=== PATIENT | female | born 1995 ===

== ENCOUNTER 2016-08-11 12:33 | Emergency (ER) | payer MEDICAID ==
[2016-08-11 12:50] VITALS: RESP 18; O2SAT 97
[2016-08-11] MEDS ORDERED: NS 1,000 ML IV ONE (12:55)
[2016-08-11] MEDS ORDERED: ONDANSETRON 4 MG/2 ML VIAL IVP ONE (12:55)
[2016-08-11] MEDS ORDERED: fentaNYL 100 MCG/2 ML INJ IVP ONE (12:55)
[2016-08-11] MEDS ORDERED: DICYCLOMINE 20 MG TAB PO ONE (12:57)
--- NOTE | 2016-08-11 13:01 | EDPHY ---
H & P Stated Complaint: c/o mid abd pain x 3 days Time Seen by Provider: 08/11/16 12:45 HPI/ROS: CHIEF COMPLAINT: Abdominal pain HISTORY OF PRESENT ILLNESS: 20-year-old female with a history of IBS which is usually well controlled with Bentyl presents to the emergency department reporting right mid abdominal pain which started yesterday. Pain as dull, moderate in severity. Associated with some nausea but no vomiting. Her IBS has not previously resulted in right-sided pain. Patient also has a history of constipation. She tells me she called her primary care physician who reported that she should come to the emergency department to obtain a Bentyl prescription. Patient denies any fevers or chills. She denies any urinary complaints, or diarrhea. She has no lightheadedness or headache. No vaginal bleeding. LMP was 2 weeks ago. Denies abdominal trauma. REVIEW OF SYSTEMS: Aside from elements discussed in the HPI, a comprehensive 10-point review of systems was reviewed and is negative. PAST MEDICAL HISTORY: IBS. SOCIAL HISTORY: . Nonsmoker. VITAL SIGNS Reviewed by me. GENERAL: Well-developed, well-nourished, resting comfortably in no respiratory distress. HEENT: Atraumatic. Eyes: No icterus, no injection. Mouth: moist mucous membranes. No erythema or lesions. Neck: supple with no adenopathy. LUNGS: Clear to auscultation bilaterally, no wheezes, rhonchi or rales. CARDIAC: Regular rate and rhythm, no rubs, murmurs or gallops. ABDOMEN: Soft, moderate right upper quadrant tenderness. Mild right mid quadrant tenderness. No guarding or rebound. No epigastric pain. No right lower quadrant pain. No flank pain. Nondistended. Normal bowel sounds. BACK: Mild right CVA tenderness. EXTREMITIES: No trauma. No edema. Range of motion is normal throughout. NEURO: Alert and oriented, grossly nonfocal. SKIN: Warm and dry, no rash. PSYCHIATRIC: Normal mentation, no agitation. - Personal History LMP (Females 10-55): 22-28 Days Ago Current Tetanus Diphtheria and Acellular Pertussis (TDAP): Yes Tetanus Vaccine Date: within 10 yrs - Medical/Surgical History Hx Asthma: No Hx Chronic Respiratory Disease: No Hx Diabetes: No Hx Cardiac Disease: No Hx Renal Disease: No Hx Cirrhosis: No Hx Alcoholism: No Hx HIV/AIDS: No Hx Splenectomy or Spleen Trauma: No Other PMH: IBS - Social History Smoking Status: Never smoked Constitutional: Initial Vital Signs Temperature (C) 36.1 C 08/11/16 12:47 Heart Rate 78 08/11/16 12:47 Respiratory Rate 18 08/11/16 12:47 Blood Pressure 126/90 H 08/11/16 12:47 O2 Sat (%) 97 08/11/16 12:47 O2 Delivery Mode Room Air Allergies/Adverse Reactions: metformin Allergy (Verified 08/11/16 12:47) Home Medications: Medication Instructions Recorded NK [No Known Home Meds] 08/11/16 Medical Decision Making - Diagnostics Imaging Results: Xray: Abdominal flat plate was obtained. I viewed the images myself on the PACS system. My interpretation of the images is: Constipation. The radiology interpretation is: Pending. I discussed the results with the patient. Imaging: I viewed and interpreted images myself ED Course/Re-evaluation: IV was established in the patient received IV fluids, fentanyl, and Bentyl p.o.. Laboratory evaluation is reassuring with a normal white count, normal urinalysis , normal liver function tests. Patient is not . Abdominal x-ray demonstrates significant constipation. Patient was re-evaluated. She is feeling better with the Bentyl as well as the pain medication. She was advised regarding her constipation and I suggested that she obtain a bottle magnesium citrate and use as directed. She will follow up with her primary care physician. Differential Diagnosis: After obtaining the patient's history and performing an examination, differential diagnosis considered included but was not limited to appendicitis, cholecystitis, gastritis, pancreatitis, kidney stones, urinary tract infections , irritable bowel syndrome, constipation, and other causes. - Data Points Laboratory Results: Laboratory Results 08/11/16 13:05 08/11/16 13:05 08/11/16 08/11/16 08/11/16 13:50 13:05 13:05 WBC RBC Hgb Hct MCV MCH MCHC RDW Plt Count MPV Neut % (Auto) Lymph % (Auto) [place] % (Auto) Eos % (Auto) Baso % (Auto) Nucleat RBC Rel Count Absolute Neuts (auto) Absolute Lymphs (auto) Absolute Monos (auto) Absolute Eos (auto) Absolute Basos (auto) Absolute Nucleated RBC Immature Gran % Immature Gran # Sodium 140 mEq/L mEq/L (134-144) Potassium 4.4 mEq/L mEq/L (3.5-5.2) Chloride 103 mEq/L mEq/L (97-110) Carbon Dioxide 23 mEq/l mEq/l (22-31) Anion Gap 14 mEq/L mEq/L (8-16) BUN 12 mg/dL mg/dL (7-23) Creatinine 0.7 mg/dL mg/dL (0.6-1.0) Estimated GFR > 60 Glucose 85 mg/dL mg/dL (70-100) Calcium 9.3 mg/dL mg/dL (8.5-10.4) Total Bilirubin 0.6 mg/dL mg/dL (0.1-1.4) Conjugated Bilirubin 0.3 mg/dL mg/dL (0.0-0.5) Unconjugated Bilirubin 0.3 mg/dL mg/dL (0.0-1.1) AST 18 IU/L IU/L (14-46) ALT 24 IU/L IU/L (9-52) Alkaline Phosphatase 76 IU/L IU/L (38-126) Total Protein 7.2 g/dL g/dL (6.3-8.2) Albumin 3.8 g/dL g/dL (3.5-5.0) Lipase 125.0 IU/L IU/L (23-300) Beta HCG, Qual NEGATIVE Urine Color YELLOW Urine Appearance CLEAR Urine pH 6.0 (5.0-7.5) Ur Specific [place] 1.010 (1.002-1.030) Urine Protein NEGATIVE (NEGATIVE) Urine Ketones NEGATIVE (NEGATIVE) Urine Blood NEGATIVE (NEGATIVE) Urine Nitrate NEGATIVE (NEGATIVE) Urine Bilirubin NEGATIVE (NEGATIVE) Urine Urobilinogen 0.2 EU EU (0.2-1.0) Ur Leukocyte Esterase NEGATIVE (NEGATIVE) Urine Glucose NEGATIVE (NEGATIVE) 08/11/16 13:05 WBC 5.44 10^3/uL 10^3/uL (3.80-9.50) RBC 4.66 10^6/uL 10^6/uL (4.18-5.33) Hgb 13.7 g/dL g/dL (12.6-16.3) Hct 41.2 % % (38.0-47.0) MCV 88.4 fL fL (81.5-99.8) MCH 29.4 pg pg (27.9-34.1) MCHC 33.3 g/dL g/dL (32.4-36.7) RDW 12.9 % % (11.5-15.2) Plt Count 206 10^3/uL 10^3/uL (150-400) MPV 10.7 fL fL (8.7-11.7) Neut % (Auto) 59.3 % % (39.3-74.2) Lymph % (Auto) 32.7 % % (15.0-45.0) [place] % (Auto) 5.9 % % (4.5-13.0) Eos % (Auto) 1.5 % % (0.6-7.6) Baso % (Auto) 0.2 % L % (0.3-1.7) Nucleat RBC Rel Count 0.0 % % (0.0-0.2) Absolute Neuts (auto) 3.23 10^3/uL 10^3/uL (1.70-6.50) Absolute Lymphs (auto) 1.78 10^3/uL 10^3/uL (1.00-3.00) Absolute Monos (auto) 0.32 10^3/uL 10^3/uL (0.30-0.80) Absolute Eos (auto) 0.08 10^3/uL 10^3/uL (0.03-0.40) Absolute Basos (auto) 0.01 10^3/uL L 10^3/uL (0.02-0.10) Absolute Nucleated RBC 0.00 10^3/uL 10^3/uL (0-0.01) Immature Gran % 0.4 % % (0.0-1.1) Immature Gran # 0.02 10^3/uL 10^3/uL (0.00-0.10) Sodium Potassium Chloride Carbon Dioxide Anion Gap BUN Creatinine Estimated GFR Glucose Calcium Total Bilirubin Conjugated Bilirubin Unconjugated Bilirubin AST ALT Alkaline Phosphatase Total Protein Albumin Lipase Beta HCG, Qual Urine Color Urine Appearance Urine pH Ur Specific [place] Urine Protein Urine Ketones Urine Blood Urine Nitrate Urine Bilirubin Urine Urobilinogen Ur Leukocyte Esterase Urine Glucose Medications Given: Discontinued Medications Dicyclomine HCl (Bentyl) 20 mg PO EDNOW ONE Stop: 08/11/16 12:58 Last Admin: 08/11/16 13:31 Dose: 20 mg Fentanyl (Sublimaze) 75 mcg IVP EDNOW ONE Stop: 08/11/16 12:56 Last Admin: 08/11/16 13:31 Dose: 75 mcg Sodium Chloride (Ns) 1,000 mls @ 0 mls/hr IV ONCE ONE PRN Reason: Wide Open Stop: 08/11/16 12:56 Last Admin: 08/11/16 13:31 Dose: 1,000 mls Ondansetron HCl (Zofran) 4 mg IVP EDNOW ONE Stop: 08/11/16 12:56 Last Admin: 08/11/16 13:32 Dose: 4 mg Departure - Departure Disposition: Home, Routine, Self-Care Clinical Impression: Abdominal pain Qualifiers: Abdominal location: right upper quadrant Qualified Code(s): R10.11 - Right upper quadrant pain Constipation Qualifiers: Constipation type: unspecified constipation type Qualified Code(s): K59.00 - Constipation, unspecified Condition: Good Instructions: Irritable Bowel Syndrome (ED), Constipation (ED), High Fiber Diet (ED) Additional Instructions: I recommend you obtain a bottle of magnesium citrate. This is available over- the-counter. Please drink half of the bottle. Then wait 4 hours. If you're not have significant stool output, you may drink the other half of the bottle. Please follow up with her primary care physician this week for re-evaluation. Please be seen sooner if you develop fevers, vomiting, worsening pain despite the above treatment, chest pain, shortness of breath, urinary complaints, or other concerns. Referrals: Patient,NotPresent [Primary Care Provider] - As per Instructions
[2016-08-11 13:09] LABS: % IMMATURE GRANULYOCYTES 0.4 % (0.0-1.1); ABSOLUTE IMMATURE GRANULOCYTES 0.02 10^3/uL (0.00-0.10); ADD DIFF? NO; ADD MORPH? NO; ADD SCAN? NO; ATYPICAL LYMPHOCYTE FLAG 30 (0-99); FRAGMENT RBC FLAG 0 (0-99); HEMATOCRIT 41.2 % (38.0-47.0); HEMOGLOBIN 13.7 g/dL (12.6-16.3); LEFT SHIFT FLG 0 (0-99); LIPEMIA HEMOLYSIS FLAG 80 (0-99); MEAN CELL HEMOGLOBIN 29.4 pg (27.9-34.1); MEAN CELL HEMOGLOBIN CONCENTR. 33.3 g/dL (32.4-36.7); MEAN CELL VOLUME 88.4 fL (81.5-99.8); MEAN PLATELET VOLUME 10.7 fL (8.7-11.7); PLATELET CLUMPS FLAG 0 (0-99); PLATELET COUNT 206 10^3/uL (150-400); RED BLOOD CELL COUNT 4.66 10^6/uL (4.18-5.33); RED CELL DISTRIBUTION WIDTH 12.9 % (11.5-15.2)
[2016-08-11] MEDS ORDERED: DICYCLOMINE 10 MG CAP ONE (13:20)
[2016-08-11 13:27] LABS: ALANINE AMINOTRANSFERASE 24 IU/L (9-52); ALBUMIN 3.8 g/dL (3.5-5.0); ALKALINE PHOSPHATASE 76 IU/L (38-126); ANION GAP 14 mEq/L (8-16); ASPARTATE AMINOTRANSFERASE 18 IU/L (14-46); BILIRUBIN,TOTAL 0.6 mg/dL (0.1-1.4); BILIRUBIN-CONJUGATED 0.3 mg/dL (0.0-0.5); BILIRUBIN-UNCONJUGATED 0.3 mg/dL (0.0-1.1); CALCIUM 9.3 mg/dL (8.5-10.4); CARBON DIOXIDE 23 mEq/l (22-31); CHLORIDE 103 mEq/L (97-110); CREATININE 0.7 mg/dL (0.6-1.0); GLOMERULAR FILTRATION RATE > 60; GLUCOSE 85 mg/dL (70-100); POTASSIUM 4.4 mEq/L (3.5-5.2); SODIUM 140 mEq/L (134-144); TOTAL PROTEIN 7.2 g/dL (6.3-8.2)
[2016-08-11 13:57] LABS: COLOR YELLOW; LEUKOCYTE ESTERASE,URINE NEGATIVE (NEGATIVE); NITRITE,URINE NEGATIVE (NEGATIVE)
[2016-08-11 14:51] VITALS: BP 118/74; PULSE 18; TEMP 98
== END 2016-08-11 14:48 | disposition home or self-care (01) ==
LOC: CED 12:33
DX: K59.00 Constipation, unspecified (principal)
CPT/HCPCS: 74000-PO; 80048-PO; 80076-PO; 81003-PO; 83690-PO; 84703-PO; 85025-PO; 96374; J2405; J3010

== ENCOUNTER 2017-04-24 12:58 | Emergency (ER) | payer MEDICAID ==
[2017-04-24 13:13] VITALS: RESP 18; TEMP 98.2
[2017-04-24] MEDS ORDERED: NS 1,000 ML IV ONE ×3 (13:22→15:29)
[2017-04-24] MEDS ORDERED: ONDANSETRON 4 MG/2 ML VIAL IVP ONE ×2 (13:22→15:29)
[2017-04-24] MEDS ORDERED: HYDROmorphONE/DILAUDID 1 MG/ML INJ IVP ONE (13:23)
--- NOTE | 2017-04-24 13:28 | EDPHY ---
H & P Time Seen by Provider: 04/24/17 13:15 HPI/ROS: CHIEF COMPLAINT: Severe abdominal pain HISTORY OF PRESENT ILLNESS: This is a 21-year-old female G1, P0, who presents with 1.5 hr of severe lower abdominal pain. Patient is 9 weeks by dates , was seen by an ux design manager yesterday and prescribed the mifepristone/misoprostol oral medical pill. She took 1 pill yesterday and 4 today. Shortly after taking the pills, she developed severe nausea and lower abdominal pain. She has not had any vaginal bleeding. She has not had any spotting. She reports they did an ultrasound yesterday confirming an IUP. No history of ectopic pregnancies. No history of PID. No history of IUD use. Patient was otherwise well. No fever, chills, chest pain, shortness of breath, palpitations, vomiting, diarrhea, urinary complaints, headache, lightheadedness. REVIEW OF SYSTEMS: Aside from elements discussed in the HPI, a comprehensive 10-point review of systems was reviewed and is negative. PAST MEDICAL HISTORY: Inflammatory bowel disease SOCIAL HISTORY: Nonsmoker. Medical school student. VITAL SIGNS Reviewed by me. GENERAL: Well-developed, well-nourished, reporting severe abdominal pain and nausea. HEENT: Atraumatic. Eyes: No icterus, no injection. Mouth: moist mucous membranes. No erythema or lesions. Neck: supple with no adenopathy. LUNGS: Clear to auscultation bilaterally, no wheezes, rhonchi or rales. CARDIAC: Regular rate and rhythm, no rubs, murmurs or gallops. ABDOMEN: Soft, moderate lower abdominal tenderness to palpation. No guarding or rebound. Nondistended, bowel sounds normal. BACK: No CVA tenderness. EXTREMITIES: No trauma. No edema. Range of motion is normal throughout. NEURO: Alert and oriented, grossly nonfocal. SKIN: Warm and dry, no rash. PSYCHIATRIC: Normal mentation, no agitation. Smoking Status: Never smoked Constitutional: Initial Vital Signs Temperature (C) 36.8 C 04/24/17 13:08 Heart Rate 90 04/24/17 13:08 Respiratory Rate 18 04/24/17 13:08 Blood Pressure 113/90 H 04/24/17 13:08 O2 Sat (%) 99 04/24/17 13:08 O2 Delivery Mode Room Air Allergies/Adverse Reactions: metformin Allergy (Verified 04/24/17 13:08) Home Medications: Medication Instructions Recorded Karens 04/24/17 Ondansetron Odt [Zofran Odt 4 mg 4 mg PO Q6 PRN #8 tab 04/24/17 (RX)] Promethazine HCl [Phenergan 12.5mg 12.5 mg PO TID PRN #10 tablet 04/24/17 tab] oxyCODONE/APAP 5/325 [Percocet 1 tab PO QID PRN #10 tab 04/24/17 5/325 (*)] Medical Decision Making - Diagnostics Imaging: Discussed imaging studies w/ call center manager Radiologist ED Course/Re-evaluation: IV placed. Patient received normal saline. She received a mg of Dilaudid IV. She received Zofran. Bedside ultrasound performed by myself demonstrates a IUP. Patient has quantitative HCG of 166,720. Type and Rh is B positive. Formal ultrasound performed demonstrates a single living IUP with a heart rate of 115. Patient was reexamined at 3:20 a.m.. She reports improvement in her discomfort , but continues to have significant nausea. She has started to develop vaginal bleeding. Patient received a 2nd L of normal saline. Her course was discussed with [facility]. Patient is comfortable being discharged home. She was given prescription of Zofran to use as needed for nausea, Percocet to use as needed for severe discomfort, and Phenergan also to use as needed for nausea. Her mother will drive her home. She will follow up with OBGYN. She understands importance of following until her quantitative HCG has falling to 0. Differential Diagnosis: The differential diagnosis for the patient's abdominal pain was considered including but not limited to ovarian cyst, pelvic inflammatory disease, ovarian torsion, urinary tract infection, related complications, threatened miscarriage, induced . - Data Points Laboratory Results: Laboratory Results 04/24/17 13:46 04/24/17 13:46 04/24/17 04/24/17 04/24/17 13:46 13:46 13:46 WBC RBC Hgb Hct MCV MCH MCHC RDW Plt Count MPV Neut % (Auto) Lymph % (Auto) [place] % (Auto) Eos % (Auto) Baso % (Auto) Nucleat RBC Rel Count Absolute Neuts (auto) Absolute Lymphs (auto) Absolute Monos (auto) Absolute Eos (auto) Absolute Basos (auto) Absolute Nucleated RBC Immature Gran % Immature Gran # Sodium 137 mEq/L mEq/L (135-145) Potassium 3.8 mEq/L mEq/L (3.5-5.2) Chloride 104 mEq/L mEq/L (97-110) Carbon Dioxide 21 mEq/l L mEq/l (22-31) Anion Gap 12 mEq/L mEq/L (8-16) BUN 8 mg/dL mg/dL (7-23) Creatinine 0.6 mg/dL mg/dL (0.6-1.0) Estimated GFR > 60 Glucose 84 mg/dL mg/dL (70-100) Calcium 8.5 mg/dL mg/dL (8.5-10.4) Beta HCG, Quant 784767.00 mIU/mL H mIU/mL (0.00-4.83) Patient ABO/Rh B POSITIVE 04/24/17 13:46 WBC 7.07 10^3/uL 10^3/uL (3.80-9.50) RBC 4.39 10^6/uL 10^6/uL (4.18-5.33) Hgb 13.2 g/dL g/dL (12.6-16.3) Hct 37.9 % L % (38.0-47.0) MCV 86.3 fL fL (81.5-99.8) MCH 30.1 pg pg (27.9-34.1) MCHC 34.8 g/dL g/dL (32.4-36.7) RDW 12.7 % % (11.5-15.2) Plt Count 179 10^3/uL 10^3/uL (150-400) MPV 10.8 fL fL (8.7-11.7) Neut % (Auto) 69.7 % % (39.3-74.2) Lymph % (Auto) 23.6 % % (15.0-45.0) [place] % (Auto) 5.5 % % (4.5-13.0) Eos % (Auto) 1.0 % % (0.6-7.6) Baso % (Auto) 0.1 % L % (0.3-1.7) Nucleat RBC Rel Count 0.0 % % (0.0-0.2) Absolute Neuts (auto) 4.92 10^3/uL 10^3/uL (1.70-6.50) Absolute Lymphs (auto) 1.67 10^3/uL 10^3/uL (1.00-3.00) Absolute Monos (auto) 0.39 10^3/uL 10^3/uL (0.30-0.80) Absolute Eos (auto) 0.07 10^3/uL 10^3/uL (0.03-0.40) Absolute Basos (auto) 0.01 10^3/uL L 10^3/uL (0.02-0.10) Absolute Nucleated RBC 0.00 10^3/uL 10^3/uL (0-0.01) Immature Gran % 0.1 % % (0.0-1.1) Immature Gran # 0.01 10^3/uL 10^3/uL (0.00-0.10) Sodium Potassium Chloride Carbon Dioxide Anion Gap BUN Creatinine Estimated GFR Glucose Calcium Beta HCG, Quant Patient ABO/Rh Medications Given: Discontinued Medications Hydromorphone HCl (Dilaudid) 1 mg IVP EDNOW ONE Stop: 04/24/17 13:24 Last Admin: 04/24/17 13:29 Dose: 1 mg Sodium Chloride (Ns) 1,000 mls @ 0 mls/hr IV ONCE ONE; Wide Open PRN Reason: Protocol Stop: 04/24/17 13:23 Last Admin: 04/24/17 13:30 Dose: 1,000 mls Sodium Chloride (Ns) 1,000 mls @ 0 mls/hr IV ONCE ONE; Wide Open PRN Reason: Protocol Stop: 04/24/17 13:24 Last Admin: 04/24/17 14:19 Dose: Not Given Ketorolac Tromethamine (Toradol) 30 mg IVP EDNOW ONE Stop: 04/24/17 14:16 Last Admin: 04/24/17 14:17 Dose: 30 mg Ondansetron HCl (Zofran) 4 mg IVP EDNOW ONE Stop: 04/24/17 13:23 Last Admin: 04/24/17 13:29 Dose: 4 mg Departure - Departure Disposition: Home, Routine, Self-Care Clinical Impression: Medically Induced , Lower abdominal pain Condition: Good Instructions: Miscarriage (ED) Additional Instructions: Expect further cramping, discomfort, and bleeding. Expect to pass large clots of blood as well as tissue. Okay to use Zofran as needed for nausea. You can also try Phenergan as needed for nausea. Okay to take oxycodone as needed for severe discomfort. Please follow-up with your OBG[facility] at [facility] as previously scheduled. Return to the emergency department or seek care urgently if you are worsening despite the above treatment, if you developed a fever, persistent vomiting, or other concerns.
[2017-04-24 13:51] LABS: PLATELET COUNT 179 10^3/uL (150-400)
[2017-04-24] MEDS ORDERED: KETOROLAC 30 MG/1 ML SDV ONE (14:00)
[2017-04-24] MEDS ORDERED: KETOROLAC 30 MG/1 ML SDV IVP ONE (14:15)
[2017-04-24] MEDS ORDERED: PROMETHAZINE HCL 25 MG/ML INJ IVP ONE (15:29)
[2017-04-24 15:43] VITALS: O2SAT 96
[2017-04-24 16:13] VITALS: BP 98/63; PULSE 75
== END 2017-04-24 16:30 | disposition home or self-care (01) ==
LOC: CED 12:58
DX: O26.891 Other specified pregnancy related conditions, first trimester (principal); R10.30 Lower abdominal pain, unspecified; E86.9 Volume depletion, unspecified; O04.80 (Induced) termination of pregnancy with unspecified complications; Z3A.09 9 weeks gestation of pregnancy
CPT/HCPCS: 80048-PO; 84702-PO; 85025-PO; 96374; J1170; J1885; J2405; J2550